=== PATIENT | male | born 1945 | race Caucasian/White ===

== ENCOUNTER → 2019-03-20 | Outpatient (CLI) | payer OTHER, MEDICARE ==
[~2019-03-20] VITALS: Ht 182.9 cm; Wt 101.1 kg
[~2019-03-20] MED LIST: ALDACTONE 100M100 MG PO; ALTOPREV40 MG PO; ASPIRIN 32325 MG/TA1 PO; ASPIRIN 32325 MG/TAB PO; ASPIRIN E.C. 8181 MG PO; CATAPRES 0.1MG0.1 MG PO; COREG 3.123.125 MG/T PO; COREG 6.256.25 MG/TA PO; CVS GLUCOSE15 GM PO; ETODOLAC400 MG PO; FLOVENT DI50 MCG/Act IH; GLUCOPHAGE850 MG/TAB PO; GLUCOTROL 5M5 MG/TAB PO; HYDRODIURIL50 MG PO; HYTRIN 5MG C5 MG/CAP PO; INSLANT SC; LANOXIN 0.120.125 MG PO; LANTUS SOLOS100 U/ML SC; LANTUS100 U/ML SQ; LASIX 40MG TABL40 MG PO; LIPITOR 40MG TA40 MG PO; LODINE XL400 MG PO; LOPID 600M600 MG/TAB PO; LOVENOX120 MG/0.8 SC; MEVACOR40 MG PO; NEURONTIN300 MG/CAP PO; NITROSTAT0.4 MG/TAB SL; NORVASC 10MG10 MG PO; NOVOLIN 70/30 710 ML SC; PLAVIX 75MG TAB75 MG PO; PROVENTIL0.09 MG/A1 IH; PROZAC 20MG20 MG PO; PROZAC40 MG PO; SARAFEM20 MG PO; TENORMIN 2525 MG/TAB PO; TOLNAFTATE TP; TYLENOL 325MG325 MG PO; TYLENOL 500MG500 MG PO; ZESTRIL2.5 MG PO
[2019-03-20 08:21] VITALS: BP 147/71; PULSE 71
[2019-03-20 11:18] VITALS: BP 143/69; PULSE 55
[2019-03-20 11:23] VITALS: BP 138/67; PULSE 55
[2019-03-20 11:28] VITALS: BP 138/67; PULSE 55
[2019-03-20 11:33] VITALS: BP 139/64; PULSE 55
--- NOTE | 2019-03-20 12:26 | NUR ---
[id number]@3L/NC4MG IVSP ZOFRAN GIVEN FOR NAUSEA [id number]/7589 [id number]/[id number]/7290 [id number] 4L/NCGIVEN 1MG VERSED 25 MCG FENTANYL [id number]/7593 [id number]/7194 [id number]/7193 [id number]/6794 [id number]/7094 [id number]/6694 [id number]/6594
== END ==
LOC: COL.RAD 07:37
DX: K74.60 Unspecified cirrhosis of liver (principal); N18.6 End stage renal disease
CPT/HCPCS: J2250; J2405; J3010